=== PATIENT | male | born 1940 | race Caucasian/White ===

== ENCOUNTER → 2016-09-02 | Outpatient (CLI) | payer MEDICARE, OTHER ==
[~2016-09-02] MED LIST: ACETAMINOPHEN PO; ACETAMINOPHEN500 M2 PO; ACETAMINOPHEN500 M3 PO; ALLERCLEAR10 MG PO; ANTACID650 MG PO; ASPIRIN81 M1 PO; ASPIRIN81 M2 PO; ASPIRIN81 MG PO; ATORVASTATIN CA10 MG PO; ATRAC-TAIN142 GM; BAYER ASPIRIN325 M1 PO; BETADINE30 M1; CALCIUM ACETAT667 M1 PO; CALPHRON667 MG PO; CLARITIN R10 MG REDI PO; CLARITIN10 M2 PO; COATED ASPIRIN325 M1 PO; COMBIGAN EYE DRO5 ML OD; COMBIGAN EYE DRO5 ML OP; COMBIGAN EYE DRO5 ML OU; COMBIVENT MININEB INH; EPOGEN20000 U/ML SUBQ; FERRO-TIME325 MG PO; GLUCOTROL PO; IPRAT-ALBUT 0.5-3 ML IH; IPRAT-ALBUT 0.5-3 ML INH; IPRATR-ALBUTEROL3 ML IH; KEFLEX500 M1 PO; LEVEMIR FL100 UNIT/1 SQ; LEVEMIR SUBQ; LEVEMIR100 UNITS/ SUBQ; LEVOTHYROXINE50 MCG PO; LIPITOR PO; MAPAP16 MG/0.5 PO; MARYS MAGIC BUTT CRE; MILK OF MA800 MG/5 M PO; MILK OF MAGNESIA PO; MIRALAX17 GM PO; MUPIROCIN0.9 GM; NEURONTIN100 MG PO; NORVASC PO; NOVOLOG FL100 UNIT/1; NOVOLOG FL100 UNIT/1 SQ; NOVOLOG100 U/M2; NOVOLOG100 U/ML SUBQ; OMEPRAZOLE20 M1 PO; OMEPRAZOLE20 M2 PO; ONDANSETRON HCL4 M1 PO; OXYCODONE-APAP1 EACH PO; OXYCODONE-APAP1 T10 PO; PAIN RELIEF650 MG PO; PERCOCET 10/3251 TAB PO; PERCOCET 5-3251 TAB PO; PERCOCET5/325 PO; PERCOCET7.5 PO; PHOSLO667 M1 PO; PHOSLO667 MG PO; PRILOSEC PO; PRILOSEC20 M1 PO; PRILOSEC20 MG PO; PRO-AMATINE5 M1 PO; PROMOD946 ML PO; RENAL SOFTGEL1 MG PO; SENEXON-S TABL1 EACH PO; SENNA PLUS TABL1 TAB PO; SENNA8.6 M1 PO; SENOKOT S1 TA1 PO; SODIUM BICARBO650 MG PO; SYNTHROID0.05 MG PO; TIMOPTIC 0.5% OP5 M1 OD; TIMOPTIC 0.5% OP5 M1 OU; TIMOPTIC 0.5% OP5 M2 OD; TRAMADOL HCL50 M1 PO; ZOFRAN PO
[2016-09-02 16:34] LABS: HEMATOCRIT 28.6 % (38.0-50.0); HEMOGLOBIN 8.3 gm/dL (13.0-16.0); MEAN CELL VOLUME 81.5 FL (83-96); MEAN CORPUSCULAR HEMOGLOBIN 23.7 PG (28-34); MEAN CORPUSCULAR HGB CONC 29.1 g/dL (30-36); MEAN PLATELET VOLUME 7.1 FL (6.5-11.5); RED BLOOD COUNT 3.51 X10e (3.90-5.60); RED CELL DISTRIBUTION WIDTH 20.1 % (11.0-15.5); WHITE BLOOD COUNT 16.8 X10e3 (4.0-10.5)
[2016-09-02 16:43] LABS: BUN/CREATININE RATIO 7.61; CALCIUM SERUM 8.5 mg/dL (8.4-10.2); CREATININE SERUM 6.7 mg/dL (0.6-1.4); GLOM FILT RATE Estimated 8.6 mL/min (>60)
[2016-09-02 16:45] LABS: POTASSIUM 5.6 mmol/L (3.5-5.1)
== END | disposition home or self-care (01) ==
LOC: CAMB 14:43
PROVIDERS: Orthopaedic Surgery
DX: Z01.812 Encounter for preprocedural laboratory examination (principal); M86.8X7 Other osteomyelitis, ankle and foot
CPT/HCPCS: 36415; 80048; 85027

== ENCOUNTER 2016-09-10 07:27 | Inpatient (IN) | payer MEDICARE, OTHER ==
--- NOTE | ~2016-09-10 | OR ---
Unit #: [id number] #: [id number] Patient: KELVIN WOOD [id number] [address] [place], [place] [address] [id number] I MR#: [id number] NAME: KELVIN WOOD. ROOM: [facility] Date of Procedure: 09/10/2016 Admission Date: 09/10/2016 Surgeon: Antonette Trinidad M.D. : 1940 Attending Physician: Antonette Trinidad M.D. Primary Care Physician: Kristopher Lowe M.D. OPERATIVE REPORT PREOPERATIVE DIAGNOSES 1. Left calcaneal osteomyelitis. 2. Status post left partial calcanectomy with nonhealing posterior wound. 3. Unsalvageable left leg. POSTOPERATIVE DIAGNOSES 1. Left calcaneal osteomyelitis. 2. Status post left partial calcanectomy with nonhealing posterior wound. 3. Unsalvageable left leg. PROCEDURE PERFORMED Left kogzm-yhi-iksf amputation with immediate postoperative cast application (82525). ASSISTANTS Can. ANESTHESIA General. INDICATIONS FOR SURGERY The patient is a 76-year-old male with insulin-dependent diabetes; end-stage renal disease, requiring dialysis; peripheral vascular disease, who has undergone previous right dchsf-uxc-yvdx amputation. The patient then developed a posterior left heel wound, which was treated first nonoperatively, then with serial debridements, then with partial calcanectomy, and a wound VAC. Unfortunately, the patient is unable to heal this wound despite attempts with revascularization of the left leg. The patient is therefore to undergo left wjxto-xob-sujk amputation as he has an unsalvageable extremity. DESCRIPTION OF PROCEDURE The patient was taken to the operating room and placed in supine position and general anesthetic was induced. The left leg was identified as the correct operative extremity since it was his only remaining leg. The IV antibiotic protocol was followed. The left leg was then prepped and draped in the usual sterile fashion. The leg was exsanguinated and the thigh tourniquet inflated to 300 mmHg. A transverse incision was made 14 cm below the level of the knee joint and then extended and a long posterior flap fashion along the calf. The tibia was exposed subperiosteally and then cut with a sagittal saw. The Unit #: [id number] #: [id number] Patient: KELVIN WOOD anterior distal end of the tibia was then beveled with the saw. The anterior compartment fascia was then divided. The anterior neurovascular bundle was doubly ligated with 0 silk. The fibula was then exposed subperiosteally and cut 2 cm proximal to the tibial cut with the microsagittal saw. The amputation knife was then used to divide the posterior soft tissues of the calf and the leg was removed and sent to pathology. The tibial nerve was then dissected proximally and cut high in the wound proximal to the level of the tibial cut. The peroneal vessels were doubly ligated with 0 silk. The posterior tibial vessels were doubly ligated with 0 silk. The tourniquet was then released and there was minimal bleeding. The deep posterior muscle fascia was then repaired to the anterior fascia as well as to the periosteum of the tibia with multiple 0 Vicryl gzlrlq-ds-mfxrm sutures. A medium Hemovac drain was placed and exited the proximal lateral calf. The subcutaneous tissue was closed with 2-0 and 3-0 Vicryl. Skin was closed with skin laurent. Xeroform gauze and dressing sponges, and Kerlix were applied. The patient was then placed and a long leg fiberglass cast with care to pad the anterior patella and keep the knee in as much extension as possible. A supracondylar distal femoral mold was applied. The patient was then awakened in the operating room and transported to the recovery room in stable condition. ESTIMATED BLOOD LOSS Minimal. COMPLICATIONS None. SPECIMENS Left leg. TOURNIQUET TIME 29 minutes. Dictated by.Soheila Perkins/ainsley TD: 09/11/2016 08:33 JOB #: [id number] OPERATIVE REPORT Page 1 of 1 X Darío Trinidad MD X PROCEDURE OPERATIVE NOTE
--- NOTE | ~2016-09-10 | DS ---
Unit #: [id number] #: [id number] Patient: KELVIN WOOD [id number] [address] [place], [place] [address] [id number] MR#: [id number] NAME: KELVIN WOOD ROOM: 450 Age: 76 Sex: M Admission Date: 09/10/2016 : 1940 Discharge Date: 09/12/2016 Attending Physician: Antonette Trinidad M.D. Primary Care Physician: Kristopher Lowe M.D. DISCHARGE SUMMARY ADMISSION DIAGNOSIS Left heel wound and infection. PREOPERATIVE DIAGNOSIS Left calcaneal osteomyelitis. POSTOPERATIVE DIAGNOSIS Left calcaneal osteomyelitis. DISCHARGE DIAGNOSIS Left calcaneal osteomyelitis. CHIEF COMPLAINT Chronic left heel wound with infection. HISTORY OF PRESENT ILLNESS The patient is a 76-year-old male who has undergone previous left partial calcanectomy and bone resections for posterior decubitus heel ulcer. He has been on IV antibiotics and unfortunately failed to heal his wound over a period of time. He now has a large left posterior heel wound with exposed calcaneus which is unamenable to further limb salvage. The patient is therefore going to be admitted for a left fzilu-sjb-yvph amputation. His previous procedure was a left partial calcanectomy where a wound VAC was applied to cover a 6 cm wound which was done two months previously and at this period of time, the limb is deemed unsalvageable. HOSPITAL COURSE The patient was admitted to the hospital on September 10, 2016. At that period of time, he underwent a left bvkjo-odo-nmpk amputation for eradication of left calcaneal osteomyelitis. After the surgery, the patient tolerated the procedure and anesthesia well. He was then admitted to the hospital to the orthopedic hernandes where he was monitored. On postoperative day one, the patient was noted to be afebrile and vital signs stable. He tolerated his diet. He worked with physical therapy and did well. Postoperative day two, the drain was pulled from the patient's amputation site. His labs were stable. His vitals were stable. At this period of time, he was deemed stable and medically ready for discharge to rehab. The patient was subsequently discharged from the hospital on September 12, 2106 to rehab. DISCHARGE MEDICATION Percocet 10/325 mg take one tablet by mouth every six hours as needed for pain, dispense #40, no refills. Unit #: [id number] #: [id number] Patient: KELVIN WOOD DISPOSITION To short-term rehab. CONDITION Stable. FOLLOWUP Dr. Osmany Trinidad in 10 days for postoperative visit. Dictated by... Christiano Lloyd M.D. for Antonette Trinidad M.D. DILAN/omar TD: 09/12/2016 11:30 JOB #: [id number] DISCHARGE SUMMARY Page 1 of 1 X X DISCHARGE SUMMARY
--- NOTE | ~2016-09-10 | DS ---
Unit #: [id number] #: [id number] Patient: KELVIN WOOD [id number] [address] [address] [id number] I MR#: [id number] NAME: KELVIN WOOD ROOM: [facility] Age: 76 Sex: M Admission Date: 09/10/2016 : 1940 Discharge Date: 09/12/2016 Attending Physician: Antonette Trinidad M.D. Primary Care Physician: Kristopher Lowe M.D. DISCHARGE SUMMARY ADMISSION DIAGNOSIS Left heel wound and infection. PREOPERATIVE DIAGNOSIS Left calcaneal osteomyelitis. POSTOPERATIVE DIAGNOSIS Left calcaneal osteomyelitis. DISCHARGE DIAGNOSIS Left calcaneal osteomyelitis. CHIEF COMPLAINT Chronic left heel wound with infection. HISTORY OF PRESENT ILLNESS The patient is a 76-year-old male who has undergone previous left partial calcanectomy and bone resections for a posterior decubitus heel ulcer. He has been on IV antibiotics that unfortunately failed to heal his wound over a period of time. He now has a large left posterior heel wound with exposed calcaneus, which is not amenable to further limb salvage. The patient is therefore going to be admitted for a left ngfjx-bij-ugnm amputation. His previous procedure was a left partial calcanectomy where a wound VAC was applied to cover a 6-cm wound, which was done 2 months previously, and at this period of time, the limb is deemed as unsalvageable. HOSPITAL COURSE The patient was admitted to the hospital on 09/10/2016. At that period of time, he underwent a left ysjay-mmz-bfvj amputation for eradication of left calcaneal osteomyelitis. After the surgery, the patient tolerated the procedure and anesthesia well. He was then admitted to the hospital to the orthopedic hernandes where he was monitored. On postoperative day #1, the patient was noted to be afebrile and vital signs stable. He tolerated his diet. He worked with physical therapy and did well. On postoperative day #2, the drain was pulled from the patient's amputation site. His labs were stable. His vitals were stable. At this period of time, he was deemed stable and medically ready for discharge to rehab and this patient was subsequently discharged from the hospital on 09/12/2016 to rehab. MEDICATIONS Percocet 10/325 mg, take one tablet by mouth every 6 hours as needed for pain, dispensed #40, no refills. Unit #: [id number] #: [id number] Patient: KELVIN WOOD DISPOSITION To a short-term rehab. CONDITION Stable. FOLLOWUP Follow up with Dr. Osmany Trinidad in 10 days for a postoperative visit. Dictated by... Christiano Lloyd M.D. for Soheila Coles/ainsley TD: 09/13/2016 03:32 JOB #: [id number] DISCHARGE SUMMARY Page 1 of 1 X X DISCHARGE SUMMARY
--- NOTE | ~2016-09-10 | HP ---
Unit #: [id number] #: [id number] Patient: KELVIN WOOD [id number] [address] [place], [place] [address] [id number] I MR#: [id number] NAME: KELVIN WOOD. ROOM: 450 Age: Sex: M Admission Date: 09/10/2016 : 1940 Attending Physician: Antonette Trinidad M.D. Primary Care Physician: Kristopher Lowe M.D. HISTORY AND PHYSICAL CHIEF COMPLAINT Left heel wound and infection. HISTORY OF PRESENT ILLNESS The patient is a 76-year-old male who has undergone previous left partial calcanectomy for a posterior heel decubitus ulcer. He has been on IV antibiotics and unfortunately he has failed to heal his wound. He now has a large left posterior heel wound with exposed calcaneus which is unamenable to further limb salvage. The patient is therefore admitted for below the knee amputation. His previous procedure was left partial calcanectomy, with wound VAC application to cover a 6 cm diameter wound, performed two months previously. PAST MEDICAL HISTORY The patient's past medical history is remarkable for chronic renal disease requiring dialysis, insulin dependent diabetes, diabetic neuropathy, chronic ischemic heart disease, peripheral vascular disease, dysphagia, glaucoma, hypercholesterolemia, hyperlipidemia, hypothyroidism and previous right below the knee amputation. PAST SURGICAL HISTORY AV fistula, incision and drainage right heel and eventual right below the knee amputation, left forearm ORIF, colonoscopy, tonsillectomy, multiple AV fistulas. HOME MEDICATIONS Aspirin, atorvastatin, calcium acetate, Combigan ophthalmic solution, Epogen, gabapentin, insulin, loratadine, MAPAP, Puracol, omeprazole, Zofran, Percocet, polyethylene glycol, Renal Caps, Sennalax-S, Senokot. ALLERGIES None. SOCIAL HISTORY The patient is a nonsmoker and does not drink alcohol. FAMILY HISTORY Unknown. REVIEW OF SYSTEMS Review of systems is unremarkable. PHYSICAL EXAMINATION Unit #: [id number] #: [id number] Patient: KELVIN WOOD GENERAL: This is an elderly white male in no acute distress. HEENT: He is edentulous. The pharynx is otherwise clear. NECK: The neck is supple, without masses. HEART: Exam reveals a regular sinus rhythm without murmurs or gallops. LUNGS: The lungs are clear. ABDOMEN: The abdomen is soft and nontender. EXTREMITIES: Examination of the left lower extremity shows a 6 cm diameter open wound which has exposed bone. There is no purulent drainage. Pulses are not palpated. Sensation is decreased to light touch. IMPRESSION Failed left partial calcanectomy with ongoing osteomyelitis and unsalvageable limb. PLAN The patient is admitted for a left below the knee amputation. This procedure was described to the patient along with the risks of bleeding, infection, failure to heal, nerve damage, higher level amputation, anesthetic complications. He understands the above risks and agrees to proceed. Dictated by Soheila Coles/mala TD: 09/09/2016 21:56 JOB #: [id number] HISTORY AND PHYSICAL Page 1 of 1 X Darío Trinidad MD X HISTORY AND PHYSICAL
--- NOTE | ~2016-09-10 | XA81 ---
[facility] A Service of [facility] & [facility] RADIOLOGY TEXT RESULTS PATIENT: KELVIN WOOD LOCATION: [facility] 450-01 : [birth year] UNIT #: [id number] AGE: [address]: Darío Trinidad MD SEX: M ORDER DR: [id number] [facility] [address] [facility]. [place], [place] [address] [id number] MR#: [id number] Acc #: [id number] NAME: KELVIN WOOD. : 1940 SEX: M STUDY DATE/TIME: 09/12/2016 9:03 UNIT: C4 ROOM: [facility] STUDY DESCRIPTION: XA CVC Remove Tunneled Cath WO Attending Physician: Antonette Trinidad M.D. Ordering Physician: Shekhar Peace Jr., M.D. Primary Care Physician: Kristopher Lowe M.D. MEDICAL IMAGING REPORT This report is preliminary unless electronic signature is present EXAM Tunneled cath removal 09/12/2016 HISTORY Dialysis catheter removal requested. PROCEDURE After sterile preparation and draping with limited local anesthesia and blunt dissection, a tunneled dialysis catheter was removed with gentle traction. Pre and post removal images reveal no evidence of retained catheter fragment, fluoro time 0.1 minutes, 2 spot images. IMPRESSION Successful removal of a left IJ tunneled dialysis catheter without complication. Dictated by... Brandon Tamayo M.D. THIS IS AN ELECTRONICALLY VERIFIED REPORT Brandon Tamayo M.D. at 09/16/2016 2:33 PM TEV/dj TD: 09/16/2016 12:50 JOB #: [id number] MEDICAL IMAGING REPORT Page 1 of 1 COPY
--- NOTE | ~2016-09-10 | CO ---
Unit #: [id number] #: [id number] Patient: KELVIN WOOD [id number] [address] [place], [place] [address] [id number] I MR#: [id number] NAME: KELVIN WOOD ROOM: 450 Age: 76 Sex: M Admission Date: 09/10/2016 : 1940 Attending Physician: Antonette Trinidad M.D. Primary Care Physician: Kristopher Lowe M.D. CONSULTATION REPORT REASON FOR CONSULTATION Postop diabetes management. HISTORY OF PRESENT ILLNESS The patient is a 76-year-old male with history of nonhealing left heel wound and infection with exposed wound failed medical therapy and status post left partial calcanectomy for a posterior heel decubitus ulcer admitted for the left qybyx-zbg-rkwy amputation. The patient is status post left gkjjr-lva-yzge amputation and Medicine consult has been placed for further management of the diabetes mellitus. The patient stated that the patient has diabetes mellitus for 3 years and has no history of any complications with diabetes. With the last hemoglobin A1c 6.5 from 10/11/2015, the patient is on insulin with Levemir 5 subcu daily. The patient is also with a history of end-stage renal disease, on hemodialysis. The patient denies any complications with the diabetes as per the patient. PAST MEDICAL HISTORY History of end-stage renal disease, on hemodialysis. The patient has a Shiley catheter in his right upper chest. History of transient metabolic encephalopathy, adult-onset diabetes mellitus, hypertension, hyperlipidemia, hypothyroidism, right carotid osteomyelitis requiring BKA by Dr. Trinidad, orthostatic hypotension, anemia of chronic kidney disease, mild mental retardation, GERD, glaucoma, left hydronephrosis. ALLERGIES No known drug allergies. HOME MEDICATIONS He is on NovoLog low dose sliding scale, senna, Renal Softgel, calcium acetate, Prilosec, Claritin, aspirin, Combigan, Neurontin, PhosLo, Lipitor, Tylenol, Zofran, MiraLax, Levemir, Epogen, and Percocet. PAST SURGICAL HISTORY AV fistula, incision and drainage of the right pilon and also right bcmyz-ldy-ttan amputation, left forearm ORIF, colonoscopy, tonsillectomy, multiple AV fistula. SOCIAL HISTORY No history of heavy smoking, alcohol, or illicit drug abuse. FAMILY HISTORY Positive for diabetes. Unit #: [id number] #: [id number] Patient: KELVIN WOOD REVIEW OF SYSTEMS 14-point review of systems was performed and only pertinent positive findings are described above, remaining are negative. PHYSICAL EXAMINATION GENERAL: The patient is lying on bed, not in acute distress. VITAL SIGNS: Temperature 97.9, pulse 91, respirations 14, blood pressure 140/57. HEENT: Head, atraumatic, normocephalic. Pupils are equal, round, and reactive to light and accommodation. The patient is edentulous. Pharynx is otherwise clear. NECK: Supple without any masses. LUNGS: Clear to auscultation bilaterally. HEART: Regular rate and rhythm. ABDOMEN: Soft. Positive bowel sounds. EXTREMITIES: Right rebgo-eig-bzag amputation. The stump looks to be clean and dry, and status post left BKA. Postoperative day 0, with dressing. NEUROLOGIC: Alert, awake, and oriented. No gross focal motor deficits. DIAGNOSTIC STUDIES LABORATORY RESULTS: Glucose of 128, BUN 59, creatinine 6.6, sodium 131, potassium 5.2, chloride 101, bicarb 20, calcium 8.5. WBC from 09/02/2016 was 16.8, hemoglobin 8.3, hematocrit 28.6, platelets 574. ASSESSMENT AND PLAN 1. Failure of partial calcanectomy with ongoing osteomyelitis and unsalvagable limb, status post left sqjqp-zio-rvez amputation. 2. Diabetes mellitus. 3. End-stage renal disease, on hemodialysis. 4. Status post below knee amputation , postop day 0. Continue with postop care and start with low dose sliding scale and Accu-Chek. 5. Hemodialysis per Renal. 6. Deep venous thrombosis prophylaxis. 7. Further recommendations will follow once lab results are available. Dictated by... Soheila Dale/ainsley TD: 09/10/2016 22:52 JOB #: [id number] CONSULTATION REPORT Page 1 of 1 X X CONSULTATION REPORT
--- NOTE | ~2016-09-10 | CO ---
Unit #: [id number] #: [id number] Patient: KELVIN WOOD [id number] [address] [place], [place] [address] [id number] MR#: [id number] NAME: KELVIN WOOD ROOM: 450 Age: 76 Sex: M Admission Date: 09/10/2016 : 1940 Attending Physician: Antonette Trinidad M.D. Primary Care Physician: Kristopher Lowe M.D. Consultation Date: 09/11/2016 CONSULTATION REPORT REASON FOR CONSULT End-stage renal disease. HISTORY OF PRESENT ILLNESS The patient is a 76-year-old white male with history of end-stage renal disease, on hemodialysis on Friday, , Friday, at [facility] with history of mental retardation, diabetes, and peripheral vascular disease, who was admitted here for left lower extremity BKA. The patient is currently without complaints. He underwent hemodialysis yesterday. PAST MEDICAL HISTORY Significant for ESRD, hypertension, mental retardation, diabetes, peripheral vascular disease. SOCIAL HISTORY No tobacco. No alcohol. FAMILY HISTORY Noncontributory. MEDICATIONS Include Ambien, Procrit, Protonix, NovoLog, Lipitor, Neurontin, Colace, PhosLo, Protonix, Percocet, Nephrocaps, Senokot, Claritin. REVIEW OF SYSTEMS 12-point review of systems is currently negative. PHYSICAL EXAMINATION VITAL SIGNS: Blood pressure is 118/46, heart rate 77, respirations 14, temperature 97.4. GENERAL: He is a well-nourished white male. HEENT: Shows no JVD. No LAD. CARDIOVASCULAR: Regular rate and rhythm. No murmurs, rubs, or gallops. LUNGS: Clear to auscultation bilaterally. ABDOMEN: Soft, nontender, nondistended. EXTREMITIES: Show no clubbing, cyanosis, or edema. NEUROLOGIC: Grossly intact. DIAGNOSTIC STUDIES LABORATORY RESULTS: Show sodium 131, potassium 4.0, chloride 97, bicarb 27, BUN 29, creatinine is 3.5, calcium is 8.0. White count 12.3, hemoglobin 7.2, platelets of 374. Unit #: [id number] #: [id number] Patient: KELVIN WOOD ASSESSMENT AND PLAN 1. End-stage renal disease. The patient is on hemodialysis on Friday, , and Friday. Status post dialysis yesterday. He also had below-knee amputation. Yesterday, labs are reviewed. No need for hemodialysis today. We will continue hemodialysis on . 2. Osteomyelitis, status post below-knee amputation. Currently, without complaints. 3. Anemia. Hemoglobin down to 7.2. Currently, on erythropoietin. May need blood transfusion. 4. Diabetes. We will continue insulin. Dictated by... Arlene Rojas M.D. YASMIN/ainsley TD: 09/13/2016 01:52 JOB #: [id number] CONSULTATION REPORT Page 1 of 1 X Arlene Rojas MD X CONSULTATION REPORT
[2016-09-10 10:11] LABS: BUN/CREATININE RATIO 8.93; CALCIUM SERUM 8.5 mg/dL (8.4-10.2); CREATININE SERUM 6.6 mg/dL (0.6-1.4); GLOM FILT RATE Estimated 8.7 mL/min (>60); POTASSIUM 5.2 mmol/L (3.5-5.1)
[2016-09-11 09:11] LABS: HEMATOCRIT 24.5 % (38.0-50.0); HEMOGLOBIN 7.2 gm/dL (13.0-16.0); MEAN CELL VOLUME 80.1 FL (83-96); MEAN CORPUSCULAR HEMOGLOBIN 23.7 PG (28-34); MEAN CORPUSCULAR HGB CONC 29.6 g/dL (30-36); MEAN PLATELET VOLUME 7.1 FL (6.5-11.5); RED BLOOD COUNT 3.06 X10e (3.90-5.60); RED CELL DISTRIBUTION WIDTH 20.1 % (11.0-15.5); WHITE BLOOD COUNT 12.3 X10e3 (4.0-10.5)
[2016-09-11 09:25] LABS: INR 1.1; PARTIAL THROMBOPLASTIN TIME 33.6 SECONDS (23.5-31.3)
[2016-09-11 09:48] LABS: BUN/CREATININE RATIO 6.85; GLOM FILT RATE Estimated 18.1 mL/min (>60)
[2016-09-11 09:52] LABS: CREATININE SERUM 3.5 mg/dL (0.6-1.4)
[2016-09-12 04:56] LABS: BASOPHIL# 0.1 X10e3 (0-0.3); BASOPHIL% 0.8 % (0-2.5); DIFF IND YES; EOSINOPHIL# 0.5 X10e3 (0-0.7); EOSINOPHIL% 4.1 % (0.0-7.0); HEMATOCRIT 25.4 % (38.0-50.0); HEMOGLOBIN 7.3 gm/dL (13.0-16.0); LYMPHOCYTE# 1.8 X10e3 (1.0-3.5); LYMPHOCYTE% 15.4 % (17.0-45.0); MEAN CELL VOLUME 81.3 FL (83-96); MEAN CORPUSCULAR HEMOGLOBIN 23.3 PG (28-34); MEAN CORPUSCULAR HGB CONC 28.6 g/dL (30-36); MEAN PLATELET VOLUME 7.3 FL (6.5-11.5); MONOCYTE# 1.4 X10e3 (0-1.0); MONOCYTE% 12.2 % (3.0-12.0); NEUTROPHIL% 67.5 % (40-75); PLATELET COUNT 358 X10e3 (140-420); RED BLOOD COUNT 3.12 X10e (3.90-5.60); WHITE BLOOD COUNT 11.8 X10e3 (4.0-10.5)
[2016-09-12 05:15] LABS: PLATELET ESTIMATE NORMAL (NORMAL)
[2016-09-12 05:16] LABS: HYPOCHROMIA SL
[2016-09-12 05:17] LABS: MICROCYTOSIS SL; SPHEROCYTE MOD
[2016-09-12 05:43] LABS: BUN/CREATININE RATIO 7.5; CALCIUM SERUM 8.5 mg/dL (8.4-10.2); CREATININE SERUM 4.4 mg/dL (0.6-1.4); GLOM FILT RATE Estimated 13.9 mL/min (>60); MAGNESIUM 1.6 mg/dL (1.6-3.0); POTASSIUM 4.6 mmol/L (3.5-5.1)
== END 2016-09-12 23:45 | DRG 856 ==
LOC: CSUR 07:27 → CPACUOF 11:30 → C4B 13:04
PROVIDERS: Internal Medicine; Internal Medicine Nephrology; Orthopaedic Surgery
PROC: 0Y6J0Z3 Detachment at Left Lower Leg, Low, Open Approach (ICD-10-PCS; principal; 2016-09-10 10:00)
DX: T81.4XXA Infection following a procedure, initial encounter (principal); N18.6 End stage renal disease; E11.40 Type 2 diabetes mellitus with diabetic neuropathy, unspecified; I12.0 Hypertensive chronic kidney disease with stage 5 chronic kidney disease or end stage renal disease; M86.8X7 Other osteomyelitis, ankle and foot; Z99.2 Dependence on renal dialysis; I73.9 Peripheral vascular disease, unspecified; E78.00 Pure hypercholesterolemia, unspecified; E78.5 Hyperlipidemia, unspecified; E03.9 Hypothyroidism, unspecified; K21.9 Gastro-esophageal reflux disease without esophagitis; F79 Unspecified intellectual disabilities; Z89.511 Acquired absence of right leg below knee; Z98.42 Cataract extraction status, left eye; Z98.41 Cataract extraction status, right eye
CPT/HCPCS: 77001; 80048; 82947; 83735; 85025; 85027; 85610; 85730; 88307; 88311; 94010; 94760; 94761; J0690; J2270; J2370; J3010; Q4081